=== PATIENT | male | born 1950 | race Caucasian/White ===

== ENCOUNTER 2017-04-22 09:28 | Emergency (ER) | payer OTHER ==
[~2017-04-22] VITALS: Ht 165.1 cm; Wt 59.0 kg
[~2017-04-22 09:28] MED LIST: AMOX1TAB5
[2017-04-22] MEDS ORDERED: SULFATRIM 800-120 ML (09:41)
[2017-04-22] MEDS ORDERED: TAMS0.4C (09:42)
== END 2017-04-22 18:46 | disposition designated cancer center or children's hospital (05) ==
LOC: ER 09:28
DX: N41.8 Other inflammatory diseases of prostate (principal); K52.9 Noninfective gastroenteritis and colitis, unspecified; R31.9 Hematuria, unspecified; N39.0 Urinary tract infection, site not specified

== ENCOUNTER 2020-12-10 22:51 | Emergency (ER) | payer OTHER ==
[~2020-12-10] VITALS: Ht 165.1 cm; Wt 59.0 kg
[~2020-12-10 22:51] MED LIST changes: +SULFATRIM 800-120 ML; +TAMS0.4C
== END 2020-12-11 01:10 | disposition home or self-care (01) ==
LOC: ER 22:51
DX: G89.18 Other acute postprocedural pain (principal); H57.11 Ocular pain, right eye

== ENCOUNTER 2023-12-08 09:39 | Emergency (ER) | payer OTHER ==
[~2023-12-08] VITALS: Ht 165.1 cm; Wt 56.7 kg
[2023-12-08] MEDS ORDERED: 0.9 % SODIUM CHLORIDE 1,000 ML IV SCH (09:56)
[2023-12-08] MEDS ORDERED: MEPERIDINE HCL/PF 50 MG/ML VIAL IM ONE (10:00)
[2023-12-08 10:35] LABS: HEMATOCRIT 41.5 % (39.0-48.0); MEAN CELL VOLUME 85.4 fL (80.0-100.00); MEAN CORPUSCULAR HEMOGLOBIN 28.8 pg (27.00-32.0); MEAN CORPUSCULAR HGB CONC 33.8 g/dl (32.0-36.0); PLATELET COUNT 210 K/uL (150-450); RED BLOOD COUNT 4.87 M/uL (4.00-6.00); RED CELL DISTRIBUTION WIDTH 13.3 % (11.5-14.5)
[2023-12-08 10:55] LABS: CREATININE SERUM 1.85 mg/dL (0.70-1.30); GFR 36.22; POTASSIUM 3.88 mEq/L (3.5-5.1)
[2023-12-08 11:06] LABS: URINE APPEARANCE Clear; URINE BILIRRUBIN Negative (NEGATIVE); URINE BLOOD Moderate; URINE COLOR Dark Yellow; URINE GLUCOSE Negative (NEGATIVE); URINE KETONE Trace (NEGATIVE); URINE LEUKOCYTE Negative; URINE NITRATE Negative; URINE UROBILINOGEN 0.2 E.U./dl
[2023-12-08 11:07] LABS: URINE BACTERIA 27.7 uL (0.0-1933); URINE EPITHELIAL CELLS 2.4 uL (0.0-38.8); URINE RBC 300.9 uL (0.0-20.8); URINE WBC 7.8 uL (0.0-23.2)
[2023-12-08 11:31] LABS: URINE CAST 0.45 uL (0.0-1.40); URINE PROTEIN 100 (NEGATIVE)
[2023-12-08] MEDS ORDERED: TAMSULOSIN HCL 0.4 MG CAP PO ONE (11:45)
[2023-12-08] MEDS ORDERED: MEPERIDINE HCL/PF 25 MG/ML VIAL IV ONE (14:00)
== END 2023-12-08 14:58 | disposition home or self-care (01) ==
LOC: ER 09:41
PROVIDERS: Emergency Medicine
DX: N23 Unspecified renal colic (principal)
CPT/HCPCS: 36415; 74176; 96365; 96366; 96372; 99284; J3490 ×2; J7030